=== PATIENT | male | born 1955 | race Hispanic/Latino ===

== ENCOUNTER 2020-10-09 06:10 | Day surgery (SDC) | payer OTHER ==
[2020-10-02 13:48] LABS: Hematocrit 36.6 % (35.5-45.6); Hemoglobin 12.6 gm/dl (11.8-15.2); Mean Corpuscular HGB Conc 35 % (32-34); Mean Corpuscular Volume 102 fl (84-94); Platelet Count 146 K/mm3 (140-440); Red Blood Count 3.58 M/mm3 (3.65-5.03); Red Cell Distribution Width 13.7 % (13.2-15.2)
[2020-10-02 14:41] LABS: Alanine Aminotransferase 13 units/L (7-56); Blood Urea Nitrogen 7 mg/dL (9-20); Calcium 8.7 mg/dL (8.4-10.2); Hemolysis Index 7
[2020-10-02 14:48] LABS: BUN/Creatinine Ratio 10
[2020-10-02 15:08] VITALS: BP 142/85
[~2020-10-09 06:10] MED LIST: SODIUM CHLORIDE 0.9% 1000 ML 1,000 ML IV SCH
[2020-10-09] MEDS ORDERED: BACTERIOSTATIC SODIUM CHLORIDE 0.9% 30 ML VIAL INFILTRATI ONE (06:26)
--- NOTE | 2020-10-09 07:04 | Anesthesia Consultation ---
Anesthesia Consult and Med Hx Date of service: 10/09/20 - Airway Anesthetic Teeth Evaluation: Poor ROM Head & Neck: Adequate Mental/Hyoid Distance: Adequate Mallampati Class: Class II Intubation Access Assessment: Good - Pulmonary Exam CTA: Yes - Cardiac Exam Cardiac Exam: RRR - Pre-Operative Health Status ASA Pre-Surgery Classification: ASA3 Proposed Anesthetic Plan: General - Pulmonary Hx Smoking: Yes (1/2 PPD) COPD: Yes (NO MEDS) Hx Sleep Apnea: No (LINNEA PRE SCREEN HIGH RISK) - Cardiovascular System Hx Hypertension: Yes (X 35 YRS) - Central Nervous System Hx Psychiatric Problems: No - Hematic Hx Anemia: No
[2020-10-09 07:05] LABS: Blood Urea Nitrogen 7 mg/dL (9-20); Hemolysis Index 11
--- NOTE | 2020-10-09 07:05 | Anesthesia Day of Surgery ---
Anesthesia Day of Surgery - Day of Surgery Patient Examined: Yes Patient H&P Reviewed: Yes Patient is NPO: Yes Beta Blockers: Yes
[2020-10-09 07:18] LABS: BUN/Creatinine Ratio 10
== END 2020-10-09 06:11 | disposition home or self-care (01) ==
LOC: OR 06:10
PROVIDERS: ATTEND Urology
DX: C67.9 Malignant neoplasm of bladder, unspecified (principal); Z53.8 Procedure and treatment not carried out for other reasons; J44.9 Chronic obstructive pulmonary disease, unspecified; I10 Essential (primary) hypertension; F17.210 Nicotine dependence, cigarettes, uncomplicated; Z79.899 Other long term (current) drug therapy; Z98.890 Other specified postprocedural states; Z20.822 Contact with and (suspected) exposure to COVID-19
CPT/HCPCS: 36415; 80048; 80053; 85027; U0003